=== PATIENT | male | born 1980 | race Caucasian/White ===

== ENCOUNTER 2021-12-27 15:13 | Inpatient (IN) | payer MEDICAID ==
[~2021-12-27] VITALS: Ht 170.2 cm; Wt 107.2 kg
[2021-12-27] MEDS ORDERED: LABETALOL HCL 5 MG/ML 20 ML VIAL IVP ONE (16:15)
[2021-12-27 16:26] LABS: BASOPHILS % (AUTO) 0.5 % (0.0-2.0); EOSINOPHILS % (AUTO) 3.1 % (1.0-6.0); HEMATOCRIT 37.9 % (41-53); HEMOGLOBIN 13.1 g/dL (13.5-17.5); LYMPHOCYTES # (AUTO) 2.7 K/uL (1.0-4.8); LYMPHOCYTES % (AUTO) 21.9 % (22.0-44.0); MEAN CORPUSCULAR HEMOGLOBIN 27.7 pg (26.0-34.0); MEAN CORPUSCULAR HGB CONC 34.6 G/dL (31.0-37.0); MEAN CORPUSCULAR VOLUME 80 fL (80-100); MONOCYTES # (AUTO) 1.1 K/uL (0.1-1.0); MONOCYTES % (AUTO) 9.2 % (2.0-9.0); NEUTROPHILS % (AUTO) 65.3 % (40.0-70.0); PLATELET COUNT (AUTO) 160 K/uL (150-450); RED BLOOD CELL COUNT(AUTO) 4.73 MIL/uL (4.50-5.90); RED CELL DISTRIBUTION WIDTH 14.5 % (11.5-14.5)
[2021-12-27 16:31] LABS: CALCIUM, TOTAL 8.8 mg/dL (8.8-10.5); CREATININE 1.93 mg/dL (0.60-1.30); POTASSIUM 3.3 mmol/L (3.5-5.1)
[2021-12-27 16:39] LABS: COVID AG,FIA SOURCE NASOPHARYNGEAL
[2021-12-27 16:45] LABS: ALBUMIN 3.6 g/dL (3.4-5.0); BILIRUBIN,TOTAL 0.6 mg/dL (0.1-1.0); THYROID STIMULATING HORMONE 1.96 uIU/mL (0.36-3.74)
[2021-12-27] MEDS ORDERED: NITROGLYCERIN 0.4 MG SUBLINGUAL TABLET #25 SL ONE (17:15)
[2021-12-27] MEDS ORDERED: ACETAMINOPHEN 325 MG TABLET PO PRN (18:45)
[2021-12-27] MEDS ORDERED: LABETALOL HCL 200 MG in DEXTROSE 5%-WATER 160 ML IV PRN (18:45)
[2021-12-27] MEDS ORDERED: ATORVASTATIN CALCIUM 40 MG TABLET PO ONE (18:45)
[2021-12-27] MEDS ORDERED: ASPIRIN 81 MG CHEWABLE TABLET PO ONE (18:45)
[2021-12-27] MEDS ORDERED: ONDANSETRON HCL 4 MG/2 ML VIAL IVP PRN (18:45)
[2021-12-27] MEDS: NITROGLYCERIN 2% (1 GM=INCH) PACKET TP SCH (18:56)
[2021-12-27] MEDS ORDERED: ASPIRIN 81 MG CHEWABLE TABLET PO SCH (21:00)
[2021-12-28 00:05] VITALS: BP 133/91
[2021-12-28] MEDS: NITROGLYCERIN 2% (1 GM=INCH) PACKET TP SCH ×3 (01:10→12:43)
[2021-12-28] MEDS: HEPARIN SODIUM,PORCINE 5,000 UNITS/ML VIAL SQ SCH ×3 (01:10→16:00)
[2021-12-28 04:46] VITALS: BP 111/58
[2021-12-28 06:56] LABS: BASOPHILS % (AUTO) 0.5 % (0.0-2.0); EOSINOPHILS % (AUTO) 2.5 % (1.0-6.0); HEMATOCRIT 34.5 % (41-53); HEMOGLOBIN 12.3 g/dL (13.5-17.5); LYMPHOCYTES # (AUTO) 2.2 K/uL (1.0-4.8); LYMPHOCYTES % (AUTO) 20.7 % (22.0-44.0); MEAN CORPUSCULAR HEMOGLOBIN 28.5 pg (26.0-34.0); MEAN CORPUSCULAR HGB CONC 35.5 G/dL (31.0-37.0); MEAN CORPUSCULAR VOLUME 80 fL (80-100); NEUTROPHILS # (AUTO) 7.3 K/uL (1.8-7.7); NEUTROPHILS % (AUTO) 67.3 % (40.0-70.0); PLATELET COUNT (AUTO) 145 K/uL (150-450); RED CELL DISTRIBUTION WIDTH 14.8 % (11.5-14.5)
[2021-12-28 07:29] LABS: CALCIUM, TOTAL 8.7 mg/dL (8.8-10.5); CREATININE 1.69 mg/dL (0.60-1.30); MAGNESIUM 1.8 mg/dL (1.80-2.40)
[2021-12-28 07:34] LABS: POTASSIUM 2.7 mmol/L (3.5-5.1)
[2021-12-28 08:24] VITALS: BP 115/62
[2021-12-28] MEDS: POTASSIUM CHL 10 MEQ/WATER 50 ML IV SCH ×2 (08:28→09:52)
[2021-12-28] MEDS ORDERED: ATORVASTATIN CALCIUM 40 MG TABLET PO SCH (09:00)
[2021-12-28] MEDS ORDERED: POTASSIUM CHLORIDE 20 MEQ ER TABLET PO ONE ×2 (10:45→16:30)
[2021-12-28] MEDS ORDERED: FURO20 PO (10:50)
[2021-12-28] MEDS ORDERED: CARV3 PO (10:50)
[2021-12-28] MEDS ORDERED: POTA-92 PO (10:50)
[2021-12-28] MEDS ORDERED: ASPI81 PO (10:50)
[2021-12-28] MEDS ORDERED: ATOR40TA71 PO (10:50)
[2021-12-28 13:05] VITALS: BP 126/60
[2021-12-28 13:37] LABS: AMPHET/METH SCREEN,URINE NEGATIVE (NEGATIVE); BARBITURATE SCREEN, URINE NEGATIVE (NEGATIVE); BENZODIAZEPINES SCREEN,URINE NEGATIVE (NEGATIVE); CANNABINOID SCREEN,URINE POSITIVE (NEGATIVE); COCAINE SCREEN,URINE NEGATIVE (NEGATIVE); METHADONE SCREEN, URINE NEGATIVE (NEGATIVE); OPIATE SCREEN,URINE NEGATIVE (NEGATIVE)
[2021-12-28 13:38] LABS: PHENCYCLIDINE SCREEN,URINE NEGATIVE (NEGATIVE)
== END 2021-12-28 17:15 | disposition home or self-care (01) | DRG 199 ==
LOC: EMS 15:21 → ICU 19:01 → 5S 19:02
PROVIDERS: ADMIT Internal Medicine; ATTEND Internal Medicine
DX: I16.1 Hypertensive emergency (principal); R65.11 Systemic inflammatory response syndrome (SIRS) of non-infectious origin with acute organ dysfunction; I21.A1 Myocardial infarction type 2; I13.0 Hypertensive heart and chronic kidney disease with heart failure and stage 1 through stage 4 chronic kidney disease, or unspecified chronic kidney disease; N17.9 Acute kidney failure, unspecified; I50.9 Heart failure, unspecified; N18.9 Chronic kidney disease, unspecified; E26.9 Hyperaldosteronism, unspecified; E87.6 Hypokalemia; Z79.82 Long term (current) use of aspirin; Z79.899 Other long term (current) drug therapy; Z20.822 Contact with and (suspected) exposure to COVID-19
CPT/HCPCS: 70450; 71045; 80048; 80053; 80307; 82570; 83735; 83880; 84132; 84300; 84443; 84484; 85025; 93005; 93306; 99285; G0378; J1644; J3480; J3490; J7060; 36415-L1; 36415-TC

== ENCOUNTER 2024-12-18 18:30 | Emergency (ER) | payer SELFPAY ==
[~2024-12-18] VITALS: Ht 170.2 cm; Wt 95.5 kg
[~2024-12-18 18:30] MED LIST: ASPI81 PO; ATOR40TA71 PO; CARV3 PO; FURO20TA5 PO; POTA-92 PO
[2024-12-18 18:36] VITALS: TEMP 98.4
[2024-12-18 19:59] LABS: COVID AG,FIA SOURCE NASAL SWAB
[2024-12-18 20:24] LABS: SARS-COV2 (COVID) ANTIGEN,FIA Negative (Negative)
[2024-12-18 20:25] LABS: INFLUENZA TYPE A NEGATIVE FOR TYPE A (NEGATIVE); INFLUENZA TYPE B NEGATIVE FOR TYPE B (NEGATIVE)
[2024-12-18] MEDS: FUROSEMIDE 20 MG TABLET PO ONE (22:22)
[2024-12-18] MEDS: CARVEDILOL 6.25 MG TABLET PO ONE (22:22)
[2024-12-18] MEDS: AMOXICILLIN TRIHYDRATE 250 MG CAPSULE PO ONE (22:22)
[2024-12-18] MEDS: OXYMETAZOLINE HCL 0.05% 15 ML NASAL SPRAY NASAL ONE (22:23)
[2024-12-18 22:50] VITALS: PULSE 90; RESP 18; O2SAT 95
[2024-12-18] MEDS: ALBUTEROL SULFATE 2.5 MG/0.5 ML NEB SOLUTION NEB ONE (22:50)
[2024-12-18] MEDS: IPRATROPIUM BROMIDE 0.5 MG/2.5 ML NEB SOLUTION NEB ONE (22:51)
[2024-12-18 22:56] VITALS: PULSE 90; RESP 18; O2SAT 95
[2024-12-18 23:00] VITALS: PULSE 92; RESP 18; O2SAT 100
[2024-12-18] MEDS ORDERED: AMOX500C2 PO (23:58)
[2024-12-18] MEDS ORDERED: CARV3 PO (23:58)
[2024-12-18] MEDS ORDERED: ATOR40TA71 PO (23:58)
[2024-12-18] MEDS ORDERED: POTA-92 PO (23:58)
[2024-12-18] MEDS ORDERED: FURO20TA5 PO (23:58)
[2024-12-19 00:07] VITALS: BP 137/89; PULSE 86; RESP 18; O2SAT 96
== END 2024-12-19 00:24 | disposition home or self-care (01) ==
LOC: EMS 18:44
DX: J32.9 Chronic sinusitis, unspecified (principal); I10 Essential (primary) hypertension; F12.90 Cannabis use, unspecified, uncomplicated; Z79.82 Long term (current) use of aspirin; Z79.899 Other long term (current) drug therapy; Z20.822 Contact with and (suspected) exposure to COVID-19
CPT/HCPCS: 71045; 87804; 94640; 99284; J7613

== ENCOUNTER 2025-01-27 15:50 | Emergency (ER) | payer MEDICAID ==
[~2025-01-27] VITALS: Ht 170.2 cm; Wt 100.0 kg
[~2025-01-27 15:50] MED LIST changes: +AMOX500C2 PO
[2025-01-27 15:57] VITALS: BP 139/100; PULSE 82; RESP 18; TEMP 98.8; O2SAT 98
[2025-01-27] MEDS ORDERED: AMLO5TAB66 PO (16:05)
[2025-01-27] MEDS ORDERED: CARV12.530 PO (16:05)
[2025-01-27] MEDS ORDERED: LOSA-381 PO (16:05)
[2025-01-27] MEDS ORDERED: METH-812 PO (20:20)
== END 2025-01-27 20:25 | disposition home or self-care (01) ==
LOC: EMS 15:50
DX: M54.50 Low back pain, unspecified (principal); I10 Essential (primary) hypertension; F12.90 Cannabis use, unspecified, uncomplicated; Z79.899 Other long term (current) drug therapy
CPT/HCPCS: 99283; Z7502